=== PATIENT | female | born 1960 | race American Indian/Alaskan Native ===

== ENCOUNTER 2017-03-29 06:26 | Inpatient (IN) | payer BC ==
[2017-03-08 09:18] VITALS: BMI 31.4
[2017-03-29] MEDS ORDERED: Bacitracin 150,000 UNIT in Sodium Chloride 0.9% Irrig 3,000 ML IR SCH (06:46)
[2017-03-29] MEDS ORDERED: Bupivacaine Liposomal Inj 20 ml INFIL ONE (06:46)
[2017-03-29] MEDS ORDERED: Lactated Ringer's 1,000 ML IV ONE ×3 (07:55→11:42)
[2017-03-29] MEDS ORDERED: Propofol 10 mg/ml Inj (20 ML) ONE (08:01)
[2017-03-29] MEDS ORDERED: Midazolam 2 MG/2 ML VIAL ONE (08:01)
[2017-03-29] MEDS ORDERED: Lidocaine Hydrochloride 5 ML INJ ONE (08:01)
[2017-03-29] MEDS ORDERED: Rocuronium 10 mg/ml (10 ml) ONE (08:01)
[2017-03-29] MEDS ORDERED: Succinylcholine Chloride 20 mg/ml Syr (5 ml) IV ONE (08:01)
[2017-03-29] MEDS ORDERED: ceFAZolin IV 1 gm in Dextrose 2 GM/100 ML BAG IVPB ONE (08:05)
[2017-03-29] MEDS ORDERED: ceFAZolin IV 2 gm in Dextrose 1 GM/50 ML BAG IVPB ONE ×2 (08:07→16:08)
[2017-03-29] MEDS: Tranexamic Acid 100 mg/ml IV SCH ×2 (08:15→09:53)
[2017-03-29] MEDS ORDERED: Neostigmine Methylsulfate 3mg/3ml Syringe IV ONE (09:59)
[2017-03-29] MEDS ORDERED: Bupivacaine HCl 0.5% PF (10 ml) Inj ONE (10:31)
--- NOTE | 2017-03-29 11:04 | OP ---
PROCEDURE DATE: 03/29/2017 PREOPERATIVE DIAGNOSIS: Right knee osteoarthritis. POSTOPERATIVE DIAGNOSIS: Right knee osteoarthritis. PROCEDURE: Right total knee arthroplasty. SURGEON: Ang Hester M.D. HOMICIDE SQUAD CAPTAIN: Dr. Hester was assisted by Luana No, the physician clinical assistant professor. Miss No was scru bbed and present throughout the case and assisted in patient positioning, retraction, and wound closu re. ANESTHESIA: General. COMPLICATIONS: None. ESTIMATED BLOOD LOSS: 120 mL. TOURNIQUET TIME: 75 minutes at 300 mmHg. INDICATIONS FOR PROCEDURE: This is a 56-year-old female with longstanding right knee pain. Clinical examination was consistent with a varus deformity of the right knee, medial and peripatellar joint l ine tenderness, pain with patellofemoral grind, radiographic examination consistent with advanced deg enerative joint disease of the right knee. After a period of failed nonsurgical management, recommen dations were for a right total knee arthroplasty. The risks, benefits, and alternatives of procedure were discussed with the patient and informed consent was obtained. OPERATIVE PROCEDURE: After surgical site was signed and verified in preoperative holding area, the p atient was taken to the operating room and placed supine on the operating room table. After administ ration of general anesthesia, patient received 2 grams of Ancef IV. A Henderson catheter was inserted. Tourniquet was placed about the right thigh. Care was taken to make sure all bony prominences and ne rves were well padded and protected and the right lower extremity was prepped and draped in usual vira rile fashion. The right lower extremity was exsanguinated and the tourniquet was inflated. An appro ximately 10 cm longitudinal midline incision was made. Soft tissues were dissected sharply down to t he knee joint and a medial parapatellar arthrotomy was performed. Medial and lateral menisci, anteri or fat pad, the ACL and PCL were all resected. Once the knee joint was adequately exposed, the step drill was used to drill into the medullary canal of the distal femur. An intramedullary distal femor al cutting block was inserted. A distal femoral resection was performed. Next, our femoral componen t was sized and the 4-in-1 cutting block was placed. Our anterior and posterior cuts were performed and then the box cut on the distal femur was performed. Our attention was directed to the tibia. Th e extramedullary tibial cutting block was placed and satisfied with our alignment, our tibial resecti on was performed. Our flexion, extension gaps were checked. The patient was noted to have full exte nsion and flexion and stable throughout range of motion. Our tibial component was sized and being ca reful to maintain proper rotation, medullary canal of the proximal tibia was reamed and punched with the cruciate punch. At this point, with the trial tibia, trial femur, and trial bearing in place, th e knee was taken through a range of motion and was noted to have full extension and flexion and stabl e throughout. Attention was directed to the patella. Thickness of patella was measured and our whiting llar resection was performed. The patellar button was sized and the holes for our patella button wer e then drilled. Trial patella was then placed and the knee was taken through a range of motion and t he patella was noted to track normally. At this point, all the trial components were removed and the knee was pulse lavaged with antibiotic saline solution. The bony surfaces were dried and the actual tibial, femoral and patellar components were cemented into place. Care was taken to remove all exce ss cement. Once the cement was hardened, the knee was pulse lavaged and the actual bearing was inser loren and locked into place with a cross pin. At this point, the tourniquet was deflated and any obvio us bleeding was cauterized. Medium Hemovac drain was inserted and arthrotomy was closed using #1 Beltran ryl suture. Subcutaneous tissue was closed using 0 Vicryl and 2-0 Vicryl suture and the skin was darvin sed using floyd. Sterile dressing was applied and a knee immobilizer was placed. The patient was awakened from the procedure, taken to recovery room in stable condition. Ang Hester MD cc: [id number] TT: 03/29/2017 11:03:41 tn
--- NOTE | 2017-03-29 11:14 | PCM.ANESB3 ---
Femoral Nerve Block - Femoral Nerve Block Date of Procedure: 03/29/17 Anesthesiologist: harmeet Pre-Procedure Diagnosis: oa Post-Procedure Diagnosis: oa Procedure Performed: Femoral Nerve Block Right - Procedure Femoral Nerve Block: The procedure was explained to the patient that it is for the post-operative pain management. Consent was obtained after a thorough discussion with the patient regarding the benefits and possible complications of local anesthetic block of the femoral nerve at the inguinal crease area. The patient was brought to the operating room and standard monitors were applied. Time-out was held with the circulating nurse to confirm the correct surgery and the appropriate block. After applying oxygen by nasal cannula and administering IV Sedation, patient was placed in supine position with fully extended lower extremities and the groin exposed. The femoral artery was then carefully palpated. The ultrasound transducer was then applied to this area in the transverse plane and the femoral nerve was visualized lateral to the femoral artery and underneath the fascia iliaca. After thorough identification, the inguinal crease area was prepped with Betadine solution three times and 1 % Lidocaine was injected subcutaneously for topical anesthesia. At this point, a #22 gauge Stimuplex 2-inch needle was inserted immediately lateral to the femoral artery pulse at the inguinal crease and advanced perpendicularly. The needle was inserted to the ultrasound transducer in-plane towards the femoral nerve in a [id number] direction. Needle advancement was performed carefully under direct ultrasound visualization. After negative aspiration, ___5__cc of _.5____% bupivicaine was injected and this was followed with _25 cc of ____.5___ % bupivicaine . Under ultrasound guidance the local anesthetics were observed spreading below fascia iliaca and around the femoral nerve. The needle was removed intact and sterile dressing was applied. The patient had stable vital signs, was conscious and in no apparent distress. The patient tolerated the femoral nerve block well with stable vital signs and was prepared for subsequent surgery.
[2017-03-29] MEDS: HYDROmorphone 0.5 mg/0.5 ml ISec IVP PRN ×3 (11:27→14:07)
--- NOTE | 2017-03-29 11:28 | PCM.SURG1 ---
Surgeon's Initial Post Op Note - Surgeon's Notes Surgeon: Monserrat Hester MD Director Of Surgery: Jessa No PA-C Type of Anesthesia: General Endo Anesthesia Administered By: Dr. Barrios Pre-Operative Diagnosis: Right knee DJD Operative Findings: tourniquet: 76 min @ 300mmHg Post-Operative Diagnosis: same Operation Performed: right total knee replacement Specimen/Specimens Removed: none Estimated Blood Loss: EBL {In ML}: 250 Blood Products Given: N/A Drains Used: Hemovac Post-Op Condition: Fair Date of Surgery/Procedure: 03/29/17 Time of Surgery/Procedure: 11:29
--- NOTE | 2017-03-29 11:42 | CP.PCM.HP ---
History of Present Illness - History of Present Illness History of Present Illness: 56F complains of right knee DJD, failed conservative mgmt and elected for TKR. PMH: fibroids, high cholesterol, migraines, MVP no history of DVT, bleeding or clotting disorder (patient mother and sister had DVT) no recent illness/cough/cold/dysuria PSH: hysterectomy, ce section, left knee surgery Present on Admission - Present on Admission Any Indicators Present on Admission: No Review of Systems - Review of Systems All systems: reviewed and no additional remarkable complaints except - Musculoskeletal Musculoskeletal: As Per HPI Past Patient History - Infectious Disease Hx of Infectious Diseases: None - Tetanus Immunizations Tetanus Immunization: Unknown - Past Medical History & Family History Past Medical History?: Yes Pertinent Family History: mother and sister had DVT - Past Social History Smoking Status: Never Smoked - CARDIAC Hx Cardiac Disorders: Yes Hx Hypertension: Yes Hx Mitral Valve Prolapse: Yes - NEUROLOGICAL Hx Neurological Disorder: Yes Hx Dizziness: Yes - HEENT Hx HEENT Problems: Yes Hx Sinusitis: Yes - ENDOCRINE/METABOLIC Hx Endocrine Disorders: Yes Hx Diabetes Mellitus Type 2: Yes (BORDERLINE NO MEDS) - MUSCULOSKELETAL/RHEUMATOLOGICAL Hx Musculoskeletal Disorders: Yes Hx Falls: No Hx Osteoarthritis: Yes - GASTROINTESTINAL Hx Gastrointestinal Disorders: Yes Hx Gastroesophageal Reflux: Yes - SURGICAL HISTORY Hx Surgeries: Yes (c section) Hx Section: Yes Hx Hysterectomy: Yes Hx Musculoskeletal Surgery: Yes (Left knee surgery) Other/Comment: uterine fibriods - ANESTHESIA Hx Anesthesia: Yes Hx Anesthesia Reactions: No Hx Malignant Hyperthermia: No Has any member of the family had a problem w/ anesthesia?: No Meds Allergies/Adverse Reactions: Allergies Allergy/AdvReac Type Severity Reaction Status Date / Time mushroom Allergy SHORTNESS Verified 03/08/17 09:18 OF BREATH peanut Allergy SHORTNESS Verified 10/12/16 22:47 OF BREATH Physical Exam - Constitutional Appears: Well, No Acute Distress - Cardiovascular Exam Additional comments: medical H&P/clearance on chart, reviewed - Extremities Exam Additional comments: RLE: +DP/PT pulses, calves soft NT neg homans ROM ankle/toes, sensation intact calve soft NT neg homans - Neurological Exam Neurological exam: Alert, Oriented x3 - Psychiatric Exam Psychiatric exam: Normal Affect, Normal Mood - Skin Skin Exam: Dry, Intact, Normal Color, Warm Results - Vital Signs Recent Vital Signs: Last Vital Signs Temp 97.0 F L 03/29/17 10:57 Pulse 57 L 03/29/17 11:13 Resp 20 03/29/17 11:13 BP 136/68 03/29/17 11:13 Pulse Ox 100 03/29/17 11:13 - Labs Labs: Laboratory Results - last 24 hr 03/29/17 07:19 Blood Type O POSITIVE Antibody Screen Negative Assessment & Plan (1) Primary osteoarthritis of right knee Assessment and Plan: NPO for OR Status: Acute (2) Hyperlipidemia Assessment and Plan: cont home meds Status: Chronic
[2017-03-29] MEDS ORDERED: Sodium Chloride 0.9% 1,000 ML IV ONE (11:45)
--- NOTE | 2017-03-29 12:00 | RAD ---
Indication: Status post TKR Comparison: None available Right knee radiographs Findings: The patient is status post right knee total arthroplasty. Alignment appears satisfactory. Soft tissue swelling, subcutaneous emphysema, drainage catheter, and surgical floyd compatible with recent postoperative history Impression: Status post right arthroplasty as above.
[2017-03-29] MEDS ORDERED: HYDROmorphone 0.5 mg/0.5 ml ISec ONE (14:08)
[2017-03-29] MEDS: ceFAZolin IV 2 gm in Dextrose 2 GM/100 ML BAG IVPB SCH (16:37)
[2017-03-29] MEDS: Sodium Chloride 0.9% 1,000 ML IV SCH (16:37)
[2017-03-29 16:54] VITALS: RESP 20
[2017-03-29] MEDS ORDERED: DiphenhydrAMINE 50 mg/ml Inj IVP STA (18:57)
[2017-03-29] MEDS: HYDROmorphone 1 mg/ml ISec IVP PRN (21:43)
[2017-03-30] MEDS: Oxycodone/Acetaminophen 5/325 mg Tab PO PRN ×4 (00:01→19:19)
[2017-03-30] MEDS: ceFAZolin IV 2 gm in Dextrose 2 GM/100 ML BAG IVPB SCH (00:10)
[2017-03-30 07:54] LABS: HEMATOCRIT 33.2 % (34.0-47.0); MEAN CELL VOLUME 87.2 fL (81.0-99.0); MEAN CORPUSCULAR HEMOGLOBIN 29.1 pg (27.0-31.0); MEAN CORPUSCULAR HGB CONC 33.4 g/dL (33.0-37.0); MEAN PLATELET VOLUME 8.2 fL (7.2-11.7); RED CELL DISTRIBUTION WIDTH 14.3 % (11.5-14.5); WHITE BLOOD COUNT 10.6 K/uL (4.8-10.8)
[2017-03-30 08:09] LABS: CHLORIDE 100 mmol/L (98-107); POTASSIUM 3.9 mmol/L (3.6-5.2); SODIUM 135 mmol/L (132-148)
[2017-03-30 08:13] LABS: BLOOD UREA NITROGEN 11 mg/dL (7-17); CARBON DIOXIDE 28 mmol/L (22-30); GFR AFRICAN-AMERICAN > 60; GLUCOSE,RANDOM 104 mg/dL (65-105)
[2017-03-30] MEDS: Enoxaparin 30 mg Syringe SC SCH ×2 (10:10→21:41)
[2017-03-30] MEDS: Sodium Chloride 0.9% 1,000 ML IV SCH ×3 (10:10→12:28)
--- NOTE | 2017-03-30 10:49 | CP.PCM.PN ---
Subjective - Date & Time of Evaluation Date of Evaluation: 03/30/17 Time of Evaluation: 08:00 - Subjective Subjective: Patient states she still has a lot of pain, but she just got the pain medication , and now pain in her knee is controlled. She denies CP/sob/dizzines/n/v/numbess /tingling Objective - Vital Signs/Intake and Output Vital Signs (last 24 hours): Temp Pulse Resp BP Pulse Ox 99.3 F 83 20 118/69 97 03/30/17 08:23 03/30/17 08:23 03/30/17 08:23 03/30/17 08:23 03/30/17 08:23 Intake and Output: 03/30/17 03/30/17 06:59 18:59 Intake Total 1360 Output Total 1170 Balance 190 - Medications Medications: Current Medications Acetaminophen (Tylenol 325mg Tab) 650 mg PO Q4 PRN PRN Reason: Fever 101 degrees fahrenheit Docusate Sodium (Colace) 100 mg PO BID [facility] Last Admin: 03/30/17 10:10 Dose: 100 mg Enoxaparin Sodium (Lovenox) 30 mg SC Q12H [facility] Last Admin: 03/30/17 10:10 Dose: 30 mg Hydromorphone HCl (Dilaudid) 1 mg IVP Q4H PRN PRN Reason: Pain, severe (8-10) Last Admin: 03/29/17 21:43 Dose: 1 mg Sodium Chloride (Sodium Chloride 0.9%) 1,000 mls @ 80 mls/hr IV .[id number] [facility] Last Admin: 03/30/17 10:10 Dose: 80 mls/hr Oxycodone/Acetaminophen (Percocet 5/325 Mg Tab) 2 tab PO Q4H PRN PRN Reason: Pain, moderate (4-7) Stop: 04/01/17 11:30 Last Admin: 03/30/17 07:53 Dose: 2 tab Pneumococcal Polyvalent Vaccine (Pneumovax 23 Vaccine) 0.5 ml IM .ONCE ONE Stop: 03/31/17 10:01 Rosuvastatin Calcium (Crestor) 10 mg PO HS [facility] - Labs Labs: 03/30/17 07:36 03/30/17 07:36 - Constitutional Appears: Well, No Acute Distress - Extremities Exam Additional comments: +ROM ankle/toes, sensation intact, +DP/PT pulses, cavles soft NT neg homans, dressing/knee immob/hemovac intact Assessment and Plan (1) Primary osteoarthritis of right knee Assessment & Plan: POD#1 s/p R TKR -PT/OT -plan rehab -VTE proph -OOB/IS for low grade temp, likely atelectasis -labs reviewed, labs in am -d/w dr. Hester, agrees with above Status: Acute (2) Hyperlipidemia Assessment & Plan: cont home emd Status: Chronic
[2017-03-30] MEDS: HYDROmorphone 1 mg/ml ISec IVP PRN (21:11)
[2017-03-31 07:20] LABS: HEMATOCRIT 35.3 % (34.0-47.0); MEAN CELL VOLUME 87.4 fL (81.0-99.0); MEAN CORPUSCULAR HEMOGLOBIN 28.4 pg (27.0-31.0); MEAN CORPUSCULAR HGB CONC 32.6 g/dL (33.0-37.0); MEAN PLATELET VOLUME 8.4 fL (7.2-11.7); RED CELL DISTRIBUTION WIDTH 14.4 % (11.5-14.5); WHITE BLOOD COUNT 12.7 K/uL (4.8-10.8)
[2017-03-31 07:35] LABS: CHLORIDE 98 mmol/L (98-107); POTASSIUM 3.9 mmol/L (3.6-5.2); SODIUM 136 mmol/L (132-148)
[2017-03-31 07:38] LABS: BLOOD UREA NITROGEN 8 mg/dL (7-17); CARBON DIOXIDE 28 mmol/L (22-30); GFR AFRICAN-AMERICAN > 60
[2017-03-31 07:39] LABS: CALCIUM 8.9 mg/dl (8.6-10.4); GLUCOSE,RANDOM 123 mg/dL (65-105)
[2017-03-31] MEDS: Oxycodone/Acetaminophen 5/325 mg Tab PO PRN (08:27)
[2017-03-31] MEDS: Enoxaparin 30 mg Syringe SC SCH (09:35)
--- NOTE | 2017-03-31 09:36 | CP.PCM.PN ---
Subjective - Date & Time of Evaluation Date of Evaluation: 03/31/17 Time of Evaluation: 09:33 - Subjective Subjective: Patient states she still has a lot of pain in her knee. She feels like she may have "done too much" yesterday, was able to use walker to go to bathroom. Denies CP/SOB/dizziness/n/v/numbness/tingling. Admits to sore throat, cough. Denies dysuria. Objective - Vital Signs/Intake and Output Vital Signs (last 24 hours): Temp Pulse Resp BP Pulse Ox 99.6 F 91 H 20 149/81 97 03/31/17 07:00 03/31/17 07:00 03/31/17 07:00 03/31/17 07:00 03/31/17 07:00 Intake and Output: 03/31/17 03/31/17 06:59 18:59 Intake Total 700 Output Total 90 Balance 610 - Medications Medications: Current Medications Acetaminophen (Tylenol 325mg Tab) 650 mg PO Q4 PRN PRN Reason: Fever 101 degrees fahrenheit Docusate Sodium (Colace) 100 mg PO BID [facility] Last Admin: 03/30/17 18:09 Dose: 100 mg Enoxaparin Sodium (Lovenox) 30 mg SC Q12H [facility] Last Admin: 03/30/17 21:41 Dose: 30 mg Hydromorphone HCl (Dilaudid) 1 mg IVP Q4H PRN PRN Reason: Pain, severe (8-10) Last Admin: 03/30/17 21:11 Dose: 1 mg Sodium Chloride (Sodium Chloride 0.9%) 1,000 mls @ 80 mls/hr IV .[id number] [facility] Last Admin: 03/30/17 12:28 Dose: Not Given Oxycodone/Acetaminophen (Percocet 5/325 Mg Tab) 2 tab PO Q4H PRN PRN Reason: Pain, moderate (4-7) Stop: 04/01/17 11:30 Last Admin: 03/31/17 08:27 Dose: 2 tab Pneumococcal Polyvalent Vaccine (Pneumovax 23 Vaccine) 0.5 ml IM .ONCE ONE Stop: 03/31/17 10:01 Rosuvastatin Calcium (Crestor) 10 mg PO [facility] Last Admin: 03/30/17 21:41 Dose: 10 mg - Labs Labs: 03/31/17 07:11 03/31/17 07:11 - Constitutional Appears: Well, No Acute Distress - Extremities Exam Additional comments: RLE: incision intact, dry, no erythema, minimal swelling, Hemovac pulled. Sensation intact, +DP/PT pulses, calves soft NT neg homans +ROM ankle/toes Assessment and Plan (1) Primary osteoarthritis of right knee Assessment & Plan: POD#2 s/p right TKR -denied acute, awaiting [facility] referral -will get CXR due to cough and WBC -VTE proph -d/w Dr. Hester, agrees with above Status: Acute (2) Hyperlipidemia Status: Chronic
[2017-03-31] MEDS ORDERED: Pneumococcal 23-Valent Vaccine IM ONE (10:00)
[2017-03-31] MEDS ORDERED: Pantoprazole 40 mg EC Tab PO SCH (11:00)
--- NOTE | 2017-03-31 11:42 | CP.PCM.PN ---
Subjective - Date & Time of Evaluation Date of Evaluation: 03/31/17 Time of Evaluation: 11:41 - Subjective Subjective: Pt had CXR this morning. Awaiting official reading. Tmax 99 Hg 11.6 Stable for rehab today if CXR negative WBAT cont Eliquis f/u 2 weeks in office Objective - Vital Signs/Intake and Output Vital Signs (last 24 hours): Temp Pulse Resp BP Pulse Ox 99.6 F 91 H 20 149/81 97 03/31/17 07:00 03/31/17 07:00 03/31/17 07:00 03/31/17 07:00 03/31/17 07:00 Intake and Output: 03/31/17 03/31/17 06:59 18:59 Intake Total 700 Output Total 90 Balance 610 - Medications Medications: Current Medications Acetaminophen (Tylenol 325mg Tab) 650 mg PO Q4 PRN PRN Reason: Fever 101 degrees fahrenheit Apixaban (Eliquis) 2.5 mg PO Q12 ANA Docusate Sodium (Colace) 100 mg PO BID [facility] Last Admin: 03/31/17 09:35 Dose: 100 mg Hydromorphone HCl (Dilaudid) 1 mg IVP Q4H PRN PRN Reason: Pain, severe (8-10) Last Admin: 03/30/17 21:11 Dose: 1 mg Ketorolac Tromethamine (Toradol) 30 mg IVP Q6 PRN PRN Reason: Pain, Mild (1-3) Last Admin: 03/31/17 10:30 Dose: 30 mg Oxycodone/Acetaminophen (Percocet 5/325 Mg Tab) 2 tab PO Q4H PRN PRN Reason: Pain, moderate (4-7) Stop: 04/01/17 11:30 Last Admin: 03/31/17 08:27 Dose: 2 tab Pantoprazole Sodium (Protonix Ec Tab) 40 mg PO DAILY ANA Rosuvastatin Calcium (Crestor) 10 mg PO HS ANA Last Admin: 03/30/17 21:41 Dose: 10 mg - Labs Labs: 03/31/17 07:11 03/31/17 07:11
--- NOTE | 2017-03-31 12:11 | RAD ---
HISTORY: cough COMPARISON: No prior. TECHNIQUE: Chest PA and lateral FINDINGS: LUNGS: No active pulmonary disease. PLEURA: No significant pleural effusion identified. No pneumothorax apparent. CARDIOVASCULAR: Normal. OSSEOUS STRUCTURES: Mild multilevel degenerative spondylosis of the thoracic and upper lumbar spine. There is also mild levoscoliosis centered at the thoracolumbar junction. VISUALIZED UPPER ABDOMEN: Normal. OTHER FINDINGS: None. IMPRESSION: No acute consolidation.
[2017-03-31 17:25] VITALS: BP 135/70; PULSE 80; TEMP 99.2; O2SAT 95
== END 2017-03-31 19:31 | DRG 470 ==
LOC: C.9S 06:26 → C.6T 15:42
PROVIDERS: ADMIT Orthopaedic Surgery; ATTEND Orthopaedic Surgery
PROC: 0SRC0J9 Replacement of Right Knee Joint with Synthetic Substitute, Cemented, Open Approach (ICD-10-PCS; principal; 2017-03-29 07:45)
DX: M17.11 Unilateral primary osteoarthritis, right knee (principal); I10 Essential (primary) hypertension; G43.909 Migraine, unspecified, not intractable, without status migrainosus; E78.00 Pure hypercholesterolemia, unspecified; I34.1 Nonrheumatic mitral (valve) prolapse; R73.03 Prediabetes; K21.9 Gastro-esophageal reflux disease without esophagitis; E78.5 Hyperlipidemia, unspecified; M21.161 Varus deformity, not elsewhere classified, right knee; R05 Cough